=== PATIENT | male | born 1965 | race African-American/Black ===

== ENCOUNTER 2019-05-13 10:17 | Emergency (ER) | payer MEDICAID, OTHER ==
[~2019-05-13] VITALS: Ht 177.8 cm; Wt 90.0 kg
[2019-05-13] MEDS ORDERED: METOCLOPRAMIDE HCL 10MG/2ML VIAL IV STA (11:20)
[2019-05-13] MEDS ORDERED: ONDANSETRON HCL 4MG/2ML INJ IV STA (11:20)
[2019-05-13] MEDS ORDERED: SODIUM CHLORIDE 0.9% 1,000 ML IV ONE (11:20)
[2019-05-13] MEDS ORDERED: MORPHINE SULFATE 4 MG/ML CPJ (NOT FOR IM USE) IV STA (11:20)
[2019-05-13 12:01] LABS: HEMATOCRIT. 47.5 % (42.0-52.0); HEMOGLOBIN. 15.5 g/dL (14.0-18.0); MEAN CORPUSCULAR HEMOGLOBIN 26.2 pg (28.0-32.0); MEAN CORPUSCULAR VOLUME 79.9 fL (80.0-94.0); MEAN PLATELET VOLUME 8.6 fl (7.4-10.4); PLATELET 253 x1000/uL (130-400); RED BLOOD CELL COUNT 5.94 mill/uL (4.7-6.1); RED CELL DISTRIBUTION WIDTH 14.7 % (11.6-14.6)
[2019-05-13 12:04] LABS: CHLORIDE 105 mEq/L (98-107)
[2019-05-13 12:05] LABS: INR 1.1; PROTHROMBIN TIME 11.2 sec (9.6-11.0)
[2019-05-13 12:08] LABS: CLARITY URINE CLEAR (CLEAR); COLOR URINE YELLOW (YELLOW); KETONES URINE 2+ (NEGATIVE); LEUKOCYTE ESTERASE URINE NEGATIVE (NEGATIVE); NITRITE URINE NEGATIVE (NEGATIVE); OCCULT BLOOD URINE NEGATIVE (NEGATIVE); PROTEIN URINE 1+ (NEGATIVE); SPECIFIC GRAVITY URINE 1.029 (1.005-1.030); UROBILINOGEN URINE 0.2 E.U./dL (0.2-1.0)
[2019-05-13 13:17] LABS: PLATELET ESTIMATE NORMAL
[2019-05-13] MEDS ORDERED: IOHEXOL-300 100 ML BOTTLE ONE (14:17)
[2019-05-13 14:41] VITALS: BP 148/73
== END 2019-05-13 15:15 | disposition home or self-care (01) ==
LOC: ER 10:17
DX: R10.13 Epigastric pain (principal); R19.7 Diarrhea, unspecified; R11.2 Nausea with vomiting, unspecified; E11.65 Type 2 diabetes mellitus with hyperglycemia; I10 Essential (primary) hypertension; D57.1 Sickle-cell disease without crisis; I48.91 Unspecified atrial fibrillation; Z79.01 Long term (current) use of anticoagulants; Z88.0 Allergy status to penicillin
CPT/HCPCS: 36415; 74177; 80053; 81003; 83690; 85025; 85610; 96361; 96374; 96375; 99284; J2270; J2405; J2765; J7030; Q9967

== ENCOUNTER 2022-03-27 15:08 | Emergency (ER) | payer MEDICAID, OTHER ==
[~2022-03-27] VITALS: Ht 162.6 cm; Wt 80.0 kg
[2022-03-27] MEDS ORDERED: ONDANSETRON HCL 4MG/2ML INJ IV STA (22:54)
[2022-03-27] MEDS ORDERED: KETOROLAC 30MG/ML VIAL IV STA (22:54)
[2022-03-27] MEDS ORDERED: SODIUM CHLORIDE 0.9% 1,000 ML IV ONE (23:00)
[2022-03-27] MEDS ORDERED: FAMOTIDINE 20MG/2ML VIAL IV ONE (23:00)
[2022-03-27] MEDS ORDERED: LISINOPRIL 40MG TABLET PO ONE (23:15)
[2022-03-27] MEDS ORDERED: AMLODIPINE 10MG TABLET PO ONE (23:15)
[2022-03-28 00:17] LABS: CHLORIDE 101 mEq/L (98-107)
[2022-03-28 00:18] LABS: HEMATOCRIT. 42.2 % (42.0-52.0); MEAN CORPUSCULAR HEMOGLOBIN 26.8 pg (28.0-32.0); MEAN CORPUSCULAR VOLUME 80.7 fL (80.0-94.0); MEAN PLATELET VOLUME 8.9 fl (7.4-10.4); PLATELET 247 x1000/uL (130-400); RED BLOOD CELL COUNT 5.23 mill/uL (4.7-6.1); RED CELL DISTRIBUTION WIDTH 14.1 % (11.6-14.6)
[2022-03-28] MEDS ORDERED: AMLODIPINE 10MG TABLET PO NR (00:30)
[2022-03-28] MEDS ORDERED: LISINOPRIL 40MG TABLET PO NR (00:30)
[2022-03-28] MEDS ORDERED: FAMO-135 MT (04:07)
[2022-03-28] MEDS ORDERED: ACET-2708 MT (04:07)
[2022-03-28 04:56] VITALS: BP 160/81
[2022-03-28 07:51] LABS: ATYPICAL LYMPHOCYTES 1; PLATELET ESTIMATE NORMAL
== END 2022-03-28 04:56 | disposition home or self-care (01) ==
LOC: ER 15:08
DX: K80.20 Calculus of gallbladder without cholecystitis without obstruction (principal); I10 Essential (primary) hypertension; E78.00 Pure hypercholesterolemia, unspecified; I48.91 Unspecified atrial fibrillation; E11.40 Type 2 diabetes mellitus with diabetic neuropathy, unspecified; D57.1 Sickle-cell disease without crisis; Z79.01 Long term (current) use of anticoagulants; Z88.0 Allergy status to penicillin
CPT/HCPCS: 36415; 74176; 80053; 82962; 83690; 85025; 96361; 96374; 96375; 99284; J1885; J2405; J3490; J7030

== ENCOUNTER 2025-04-22 14:06 | Emergency (ER) | payer SELFPAY ==
[~2025-04-22] VITALS: Ht 193 cm; Wt 123.0 kg
[~2025-04-22 14:06] MED LIST: ACET-2708 MT; FAMO-135 MT
[2025-04-22 14:15] VITALS: O2SAT 97
[2025-04-22 14:55] LABS: BASOPHILS % 1.9 % (0.0-2.0); EOSINOPHILS % 2.9 % (0.0-5.0); HEMATOCRIT. 40.6 % (42.0-52.0); HEMOGLOBIN. 13.0 g/dL (14.0-18.0); LYMPHOCYTES % 44.9 % (20.0-50.0); MEAN PLATELET VOLUME 8.9 fl (7.4-10.4); MONOCYTES % 8.8 % (2.0-8.0); NEUTROPHILS % 41.5 % (40.0-76.0); PLATELET 227 x1000/uL (130-400); RED BLOOD CELL COUNT 5.39 mill/uL (4.7-6.1); RED CELL DISTRIBUTION WIDTH 17.7 % (11.6-14.6)
[2025-04-22 15:10] LABS: CREATININE 1.7 mg/dL (0.6-1.3); UREA NITROGEN BLOOD 19.0 mg/dL (9-23)
[2025-04-22 17:27] VITALS: BP 119/67; PULSE 61; RESP 16; O2SAT 100
[2025-04-22 17:39] LABS: TROPONIN I HIGH SENSITIVITY 18 ng/L (3.0-53)
[2025-04-22 17:40] LABS: CREATININE 1.6 mg/dL (0.6-1.3)
[2025-04-22 17:41] LABS: PROTEIN TOTAL 7.6 g/dL (6.0-8.3); UREA NITROGEN BLOOD 22 mg/dL (9-23)
[2025-04-22 17:42] LABS: ASPARTATE AMINOTRANSFERASE 38 IU/L (<34)
[2025-04-22 17:43] LABS: BILIRUBIN DIRECT 0.1 mg/dL (<=3.0); BILIRUBIN TOTAL 0.6 mg/dL (0.1-1.0)
== END 2025-04-22 18:03 | disposition home or self-care (01) ==
LOC: ER 14:06 → EDBEDREQ 15:48 → CANBEDREQ 17:19 → ER 18:03
DX: R55 Syncope and collapse (principal); R53.1 Weakness; I95.9 Hypotension, unspecified; E11.9 Type 2 diabetes mellitus without complications; I10 Essential (primary) hypertension; E78.00 Pure hypercholesterolemia, unspecified; D57.1 Sickle-cell disease without crisis; I48.91 Unspecified atrial fibrillation; Z88.0 Allergy status to penicillin; Z95.1 Presence of aortocoronary bypass graft
CPT/HCPCS: 99291; 80076; 80048; 83735; 85025; 84484; 36415; 71045; 93005; A4615; A4606